=== PATIENT | male | born 1950 | race African-American/Black ===

== ENCOUNTER 2020-11-06 14:10 | Inpatient (IN) ==
[2020-11-06] MEDS ORDERED: SODIUM CHLORIDE 0.9% 500 ML IV STA (16:39)
[2020-11-06 17:02] LABS: Basophils % 0.4 % (0.0-0.8); Hemoglobin 14.4 GM/DL (14.0-18.0); Immature Granulocytes % 0.2 %; Immature Granulocytes Absolute 0.01 #; Lymphocytes # 1.4 10*3/uL (1.4-4.0); Lymphocytes % 32.4 % (21.2-54.2); Mean Corpuscular HGB Conc 35.1 GM/DL (32-36); Mean Platelet Volume 10.5 FL (9.6-12.0); Monocytes % 7.6 % (1.7-12.7); Neutrophils % 59.4 % (38.7-73.9); Platelet Count 177 T/CUMM (130-400); Red Blood Count 4.36 MC/CUMM (3.8-5.5); Red Cell Distribution Width 11.9 % (9.3-17.3); White Blood Count 4.5 T/CUMM (4-12)
[2020-11-06 17:31] LABS: Albumin 4.1 G/DL (3.4-5.0); Bilirubin,Total 0.4 MG/DL (0.20-1.00); Calcium 8.5 MG/DL (8.5-10.1); Osmolality,Calculated 269.5 MOS/KG (273-304); Potassium 3.9 MMOL/L (3.5-5.1); Total Protein 8.3 G/DL (6.4-8.2)
[2020-11-06] MEDS ORDERED: GLUCAGON 1 MG VIAL IM PRN ×2 (18:02→18:10)
[2020-11-06] MEDS ORDERED: DEXTROSE 50% 25 GM/50 ML VIAL IV PRN ×2 (18:02→18:10)
[2020-11-06] MEDS ORDERED: MELATONIN 3 MG TABLET PO PRN (18:05)
[2020-11-06] MEDS ORDERED: AZITHROMYCIN INJ 500 MG in SODIUM CHLORIDE 0.9% 250 ML IV ONE (18:05)
[2020-11-06] MEDS: ENOXAPARIN 60 MG/0.6 ML SYRINGE SUBCUT SCH (21:14)
[2020-11-06] MEDS: AMITRIPTYLINE 25 MG TABLET PO SCH (21:15)
[2020-11-06] MEDS: GABAPENTIN 600 MG TABLET PO SCH (21:15)
[2020-11-06] MEDS: METOPROLOL TARTRATE 50 MG TABLET PO SCH (21:15)
[2020-11-06] MEDS: ASCORBIC ACID 500 MG TABLET PO SCH (21:16)
[2020-11-06] MEDS: FAMOTIDINE 20 MG TABLET PO SCH (21:16)
[2020-11-06] MEDS: INSULIN LISPRO 100 UNIT/ML SUBCUT SCH (21:21)
[2020-11-07 04:06] LABS: Basophils # 0.1 10*3/uL (0.0-0.2); Basophils % 1.2 % (0.0-0.8); Hematocrit 37.4 VOL% (42.0-52.0); Hemoglobin 13.4 GM/DL (14.0-18.0); Immature Granulocytes % 0.2 %; Immature Granulocytes Absolute 0.01 #; Lymphocytes # 1.9 10*3/uL (1.4-4.0); Lymphocytes % 44.5 % (21.2-54.2); Mean Corpuscular HGB Conc 35.8 GM/DL (32-36); Mean Corpuscular Volume 93.7 FL (87-102); Mean Platelet Volume 10.1 FL (9.6-12.0); Monocytes % 6.1 % (1.7-12.7); Platelet Count 149 T/CUMM (130-400); Red Blood Count 3.99 MC/CUMM (3.8-5.5); Red Cell Distribution Width 11.9 % (9.3-17.3); White Blood Count 4.3 T/CUMM (4-12)
[2020-11-07 04:36] LABS: Calcium 7.9 MG/DL (8.5-10.1); Ferritin 1725.9 ng/ml (26-388); Osmolality,Calculated 270.4 MOS/KG (273-304); Potassium 3.8 MMOL/L (3.5-5.1)
[2020-11-07 04:49] LABS: Microcytosis Slight
[2020-11-07 04:53] LABS: Platelet Estimate Adequate
[2020-11-07] MEDS: CETIRIZINE 10 MG TABLET PO SCH (08:52)
[2020-11-07] MEDS: ASCORBIC ACID 500 MG TABLET PO SCH ×2 (08:52→20:46)
[2020-11-07] MEDS: DEXAMETHASONE 4 MG/1 ML VIAL IV SCH (08:52)
[2020-11-07] MEDS: CHOLECALCIFEROL 1,000 UNIT TABLET PO SCH (08:53)
[2020-11-07] MEDS: ENOXAPARIN 60 MG/0.6 ML SYRINGE SUBCUT SCH ×2 (08:53→20:46)
[2020-11-07] MEDS: GABAPENTIN 600 MG TABLET PO SCH ×3 (08:53→20:46)
[2020-11-07] MEDS: FAMOTIDINE 20 MG TABLET PO SCH ×2 (08:53→20:46)
[2020-11-07] MEDS: ATORVASTATIN 20 MG TABLET PO SCH (08:53)
[2020-11-07] MEDS: ZINC GLUCONATE 50 MG TABLET PO SCH (08:53)
[2020-11-07] MEDS: METOPROLOL TARTRATE 50 MG TABLET PO SCH ×2 (08:53→20:46)
[2020-11-07] MEDS: INSULIN LISPRO 100 UNIT/ML SUBCUT SCH ×4 (08:54→20:38)
[2020-11-07 14:53] LABS: Bilirubin,Urine Negative (Negative); Blood, Urine Negative (Negative); Glucose,Urine (UA) Negative (Negative); Ketones,Urine 5 mg/dL (Negative); Mucus,Urine Occasional /LPF (Occasional); Nitrite,Urine Negative (Negative); Protein,Urine 30 MG/DL; RBC,Urine 3 /HPF (0-4); Squamous Epithelial Cell,Urine Occasional /HPF (0-10); Urine Appearance Slightly Hazy (Clear); Urine Color Yellow (Yellow); Urine Specific Gravity 1.023 (1.001-1.035); Urine Urobilinogen < 2.0 EU/DL (0.2-1.0)
[2020-11-07] MEDS: AMITRIPTYLINE 25 MG TABLET PO SCH (20:46)
[2020-11-08] MEDS: ACETAMINOPHEN 325 MG TABLET PO PRN ×2 (05:01→10:56)
[2020-11-08 07:28] LABS: Calcium 8.3 MG/DL (8.5-10.1); Osmolality,Calculated 268.5 MOS/KG (273-304); Potassium 3.8 MMOL/L (3.5-5.1)
[2020-11-08] MEDS: METOPROLOL TARTRATE 50 MG TABLET PO SCH ×2 (08:30→21:12)
[2020-11-08 08:58] LABS: Basophils % 0.5 % (0.0-0.8); Hematocrit 35.6 VOL% (42.0-52.0); Hemoglobin 12.8 GM/DL (14.0-18.0); Immature Granulocytes % 0.5 %; Immature Granulocytes Absolute 0.02 #; Lymphocytes # 2.2 10*3/uL (1.4-4.0); Lymphocytes % 51.5 % (21.2-54.2); Mean Corpuscular Volume 93.2 FL (87-102); Mean Platelet Volume 10.3 FL (9.6-12.0); Monocytes % 5.3 % (1.7-12.7); Neutrophils % 42.2 % (38.7-73.9); Platelet Count 141 T/CUMM (130-400); Red Blood Count 3.82 MC/CUMM (3.8-5.5); Red Cell Distribution Width 11.9 % (9.3-17.3); White Blood Count 4.3 T/CUMM (4-12)
[2020-11-08 09:24] LABS: Anisocytosis Slight; Atypical Lymphocytes Few; Band Neutrophils 4 % (0-10); Lymphocytes 51 % (20-55); Platelet Estimate Adequate; Segmented Neutrophils 40 % (50-85); Smudge Cells Few; Total Cells Counted 100
[2020-11-08] MEDS: ZINC GLUCONATE 50 MG TABLET PO SCH (10:55)
[2020-11-08] MEDS: ASCORBIC ACID 500 MG TABLET PO SCH ×2 (10:55→21:15)
[2020-11-08] MEDS: DEXAMETHASONE 4 MG/1 ML VIAL IV SCH (10:55)
[2020-11-08] MEDS: CHOLECALCIFEROL 1,000 UNIT TABLET PO SCH (10:55)
[2020-11-08] MEDS: INSULIN LISPRO 100 UNIT/ML SUBCUT SCH ×4 (10:56→22:10)
[2020-11-08] MEDS: FAMOTIDINE 20 MG TABLET PO SCH ×2 (10:56→21:15)
[2020-11-08] MEDS: ATORVASTATIN 20 MG TABLET PO SCH (10:56)
[2020-11-08] MEDS: CETIRIZINE 10 MG TABLET PO SCH (10:56)
[2020-11-08] MEDS: ENOXAPARIN 60 MG/0.6 ML SYRINGE SUBCUT SCH ×2 (10:57→21:13)
[2020-11-08] MEDS: GABAPENTIN 600 MG TABLET PO SCH ×3 (11:32→21:14)
[2020-11-08] MEDS: AZITHROMYCIN INJ 250 MG in SODIUM CHLORIDE 0.9% 250 ML IV SCH (14:03)
[2020-11-08] MEDS: SODIUM CHLORIDE 0.9% 1,000 ML IV SCH (14:03)
[2020-11-08] MEDS: AMITRIPTYLINE 25 MG TABLET PO SCH (21:09)
[2020-11-09 05:05] LABS: Basophils % 0.3 % (0.0-0.8); Hematocrit 36.2 VOL% (42.0-52.0); Hemoglobin 12.6 GM/DL (14.0-18.0); Immature Granulocytes % 0.5 %; Immature Granulocytes Absolute 0.02 #; Lymphocytes # 1.5 10*3/uL (1.4-4.0); Lymphocytes % 38.9 % (21.2-54.2); Mean Corpuscular HGB Conc 34.8 GM/DL (32-36); Mean Corpuscular Volume 94.5 FL (87-102); Monocytes % 6.4 % (1.7-12.7); Neutrophils % 53.9 % (38.7-73.9); Platelet Count 144 T/CUMM (130-400); Red Blood Count 3.83 MC/CUMM (3.8-5.5); Red Cell Distribution Width 11.9 % (9.3-17.3); White Blood Count 3.9 T/CUMM (4-12)
[2020-11-09 05:22] LABS: Calcium 8.3 MG/DL (8.5-10.1); Osmolality,Calculated 274.1 MOS/KG (273-304); Potassium 3.8 MMOL/L (3.5-5.1)
[2020-11-09 05:41] LABS: Lymphocytes 49 % (20-55); Nucleated Red Blood Cells 1 (0-5); Platelet Estimate Normal; Segmented Neutrophils 40 % (50-85); Total Cells Counted 100
[2020-11-09] MEDS: GABAPENTIN 600 MG TABLET PO SCH ×3 (10:29→20:41)
[2020-11-09] MEDS: ASCORBIC ACID 500 MG TABLET PO SCH ×2 (10:30→20:43)
[2020-11-09] MEDS: ACETAMINOPHEN 325 MG TABLET PO PRN (10:30)
[2020-11-09] MEDS: CHOLECALCIFEROL 1,000 UNIT TABLET PO SCH (10:30)
[2020-11-09] MEDS: ZINC GLUCONATE 50 MG TABLET PO SCH (10:30)
[2020-11-09] MEDS: CETIRIZINE 10 MG TABLET PO SCH (10:30)
[2020-11-09] MEDS: ATORVASTATIN 20 MG TABLET PO SCH (10:30)
[2020-11-09] MEDS: METOPROLOL TARTRATE 50 MG TABLET PO SCH ×2 (10:30→20:41)
[2020-11-09] MEDS: INSULIN LISPRO 100 UNIT/ML SUBCUT SCH ×4 (10:31→20:40)
[2020-11-09] MEDS: FAMOTIDINE 20 MG TABLET PO SCH ×2 (10:31→20:41)
[2020-11-09] MEDS: ENOXAPARIN 60 MG/0.6 ML SYRINGE SUBCUT SCH ×2 (10:31→20:41)
[2020-11-09] MEDS: DEXAMETHASONE 4 MG/1 ML VIAL IV SCH (10:31)
[2020-11-09] MEDS: SODIUM CHLORIDE 0.9% 1,000 ML IV SCH (14:00)
[2020-11-09] MEDS: AZITHROMYCIN INJ 250 MG in SODIUM CHLORIDE 0.9% 250 ML IV SCH (14:41)
[2020-11-09] MEDS: AMITRIPTYLINE 25 MG TABLET PO SCH (20:40)
[2020-11-10 05:15] LABS: Basophils # 0.1 10*3/uL (0.0-0.2); Basophils % 1.4 % (0.0-0.8); Hematocrit 35.1 VOL% (42.0-52.0); Hemoglobin 12.5 GM/DL (14.0-18.0); Immature Granulocytes % 0.2 %; Immature Granulocytes Absolute 0.01 #; Lymphocytes # 2.1 10*3/uL (1.4-4.0); Lymphocytes % 37.4 % (21.2-54.2); Mean Corpuscular HGB Conc 35.6 GM/DL (32-36); Mean Corpuscular Volume 93.6 FL (87-102); Mean Platelet Volume 10.7 FL (9.6-12.0); Monocytes % 4.3 % (1.7-12.7); Neutrophils % 56.7 % (38.7-73.9); Platelet Count 147 T/CUMM (130-400); Red Blood Count 3.75 MC/CUMM (3.8-5.5); Red Cell Distribution Width 12.1 % (9.3-17.3); White Blood Count 5.6 T/CUMM (4-12)
[2020-11-10 05:43] LABS: Calcium 8.2 MG/DL (8.5-10.1); Potassium 4.2 MMOL/L (3.5-5.1)
[2020-11-10 05:55] LABS: Microcytosis 1+; Tear Drop Cells Slight
[2020-11-10 05:56] LABS: Platelet Estimate Adequate
[2020-11-10] MEDS: ACETAMINOPHEN 325 MG TABLET PO PRN (07:25)
[2020-11-10] MEDS: INSULIN LISPRO 100 UNIT/ML SUBCUT SCH ×4 (08:23→20:53)
[2020-11-10] MEDS: ASCORBIC ACID 500 MG TABLET PO SCH ×2 (09:22→20:55)
[2020-11-10] MEDS: CHOLECALCIFEROL 1,000 UNIT TABLET PO SCH (09:22)
[2020-11-10] MEDS: METOPROLOL TARTRATE 50 MG TABLET PO SCH ×2 (09:22→20:54)
[2020-11-10] MEDS: ATORVASTATIN 20 MG TABLET PO SCH (09:22)
[2020-11-10] MEDS: ZINC GLUCONATE 50 MG TABLET PO SCH (09:22)
[2020-11-10] MEDS: GABAPENTIN 600 MG TABLET PO SCH ×3 (09:22→20:54)
[2020-11-10] MEDS: ENOXAPARIN 60 MG/0.6 ML SYRINGE SUBCUT SCH ×2 (09:23→20:54)
[2020-11-10] MEDS: FAMOTIDINE 20 MG TABLET PO SCH ×2 (09:23→20:54)
[2020-11-10] MEDS: CETIRIZINE 10 MG TABLET PO SCH (09:23)
[2020-11-10] MEDS: DEXAMETHASONE 4 MG/1 ML VIAL IV SCH (09:24)
[2020-11-10] MEDS ORDERED: SODIUM CHLORIDE 0.9% 1,000 ML IV ONE (10:47)
[2020-11-10] MEDS: cefTRIAXone 1,000 MG in SODIUM CHLORIDE 0.9% 100 ML IV SCH (11:21)
[2020-11-10] MEDS: AZITHROMYCIN INJ 250 MG in SODIUM CHLORIDE 0.9% 250 ML IV SCH (12:05)
[2020-11-10] MEDS: AMITRIPTYLINE 25 MG TABLET PO SCH (20:53)
[2020-11-11 06:10] LABS: Basophils % 0.3 % (0.0-0.8); Hematocrit 33.8 VOL% (42.0-52.0); Hemoglobin 11.8 GM/DL (14.0-18.0); Immature Granulocytes % 0.3 %; Immature Granulocytes Absolute 0.02 #; Lymphocytes # 2.4 10*3/uL (1.4-4.0); Mean Corpuscular HGB Conc 34.9 GM/DL (32-36); Mean Corpuscular Volume 92.9 FL (87-102); Mean Platelet Volume 10.8 FL (9.6-12.0); Monocytes % 4.7 % (1.7-12.7); Neutrophils % 55.7 % (38.7-73.9); Platelet Count 167 T/CUMM (130-400); Red Blood Count 3.64 MC/CUMM (3.8-5.5); White Blood Count 6.2 T/CUMM (4-12)
[2020-11-11 06:37] LABS: Calcium 8.2 MG/DL (8.5-10.1); Potassium 3.4 MMOL/L (3.5-5.1)
[2020-11-11 07:07] LABS: Hypochromasia Slight; Microcytosis 1+
[2020-11-11 07:08] LABS: Platelet Estimate Adequate
[2020-11-11] MEDS: INSULIN LISPRO 100 UNIT/ML SUBCUT SCH ×4 (07:12→21:25)
[2020-11-11] MEDS ORDERED: POTASSIUM CHLORIDE 20 MEQ TABLET PO ONE (07:20)
[2020-11-11] MEDS: ASCORBIC ACID 500 MG TABLET PO SCH ×2 (09:21→21:25)
[2020-11-11] MEDS: GABAPENTIN 600 MG TABLET PO SCH ×3 (09:21→21:25)
[2020-11-11] MEDS: ATORVASTATIN 20 MG TABLET PO SCH (09:21)
[2020-11-11] MEDS: METOPROLOL TARTRATE 50 MG TABLET PO SCH ×2 (09:21→21:25)
[2020-11-11] MEDS: FAMOTIDINE 20 MG TABLET PO SCH ×2 (09:21→21:25)
[2020-11-11] MEDS: ZINC GLUCONATE 50 MG TABLET PO SCH (09:21)
[2020-11-11] MEDS: DEXAMETHASONE 4 MG TABLET PO SCH (09:21)
[2020-11-11] MEDS: CETIRIZINE 10 MG TABLET PO SCH (09:21)
[2020-11-11] MEDS: ENOXAPARIN 60 MG/0.6 ML SYRINGE SUBCUT SCH ×2 (09:22→21:27)
[2020-11-11] MEDS: CHOLECALCIFEROL 1,000 UNIT TABLET PO SCH (09:22)
[2020-11-11] MEDS: cefTRIAXone 1,000 MG in SODIUM CHLORIDE 0.9% 100 ML IV SCH (12:11)
[2020-11-11] MEDS: LEVOFLOXACIN INJ 750 MG/150 ML PREMIX IV SCH (13:13)
[2020-11-11] MEDS: AMITRIPTYLINE 25 MG TABLET PO SCH (21:25)
[2020-11-12 07:07] LABS: Basophils % 0.1 % (0.0-0.8); Hemoglobin 12.5 GM/DL (14.0-18.0); Immature Granulocytes % 0.7 %; Immature Granulocytes Absolute 0.05 #; Lymphocytes # 2.1 10*3/uL (1.4-4.0); Lymphocytes % 28.5 % (21.2-54.2); Mean Corpuscular HGB Conc 34.7 GM/DL (32-36); Mean Corpuscular Volume 93.8 FL (87-102); Mean Platelet Volume 10.8 FL (9.6-12.0); Monocytes % 5.4 % (1.7-12.7); Neutrophils % 65.3 % (38.7-73.9); Platelet Count 205 T/CUMM (130-400); Red Blood Count 3.84 MC/CUMM (3.8-5.5); Red Cell Distribution Width 12.1 % (9.3-17.3); White Blood Count 7.2 T/CUMM (4-12)
[2020-11-12 07:22] LABS: Calcium 8.5 MG/DL (8.5-10.1); Osmolality,Calculated 274.8 MOS/KG (273-304); Potassium 3.8 MMOL/L (3.5-5.1)
[2020-11-12 07:30] LABS: Band Neutrophils 7 % (0-10); Lymphocytes 33 % (20-55); Platelet Estimate Normal; Segmented Neutrophils 54 % (50-85); Total Cells Counted 100
[2020-11-12 07:31] LABS: Anisocytosis Slight; Burr Cells Few
[2020-11-12] MEDS: INSULIN LISPRO 100 UNIT/ML SUBCUT SCH ×2 (07:38→11:43)
[2020-11-12] MEDS: ASCORBIC ACID 500 MG TABLET PO SCH (09:09)
[2020-11-12] MEDS: CHOLECALCIFEROL 1,000 UNIT TABLET PO SCH (09:09)
[2020-11-12] MEDS: GABAPENTIN 600 MG TABLET PO SCH ×2 (09:09→11:42)
[2020-11-12] MEDS: FAMOTIDINE 20 MG TABLET PO SCH (09:10)
[2020-11-12] MEDS: METOPROLOL TARTRATE 50 MG TABLET PO SCH (09:10)
[2020-11-12] MEDS: ZINC GLUCONATE 50 MG TABLET PO SCH (09:10)
[2020-11-12] MEDS: ENOXAPARIN 60 MG/0.6 ML SYRINGE SUBCUT SCH (09:10)
[2020-11-12] MEDS: DEXAMETHASONE 4 MG TABLET PO SCH (09:10)
[2020-11-12] MEDS: ATORVASTATIN 20 MG TABLET PO SCH (09:10)
[2020-11-12] MEDS: CETIRIZINE 10 MG TABLET PO SCH (09:10)
[2020-11-12] MEDS: LEVOFLOXACIN INJ 750 MG/150 ML PREMIX IV SCH (11:43)
[2020-11-12 12:36] VITALS: BP 160/81
== END 2020-11-12 13:41 | disposition home or self-care (01) | DRG 177 ==
LOC: N.ED 14:10 → N.EDINP 18:02 → N.2E 18:29
PROVIDERS: ADMIT Internal Medicine; ATTEND Internal Medicine

== ENCOUNTER 2021-01-08 10:35 | Observation (INO) ==
[2021-01-08] MEDS ORDERED: SODIUM CHLORIDE 0.9% 2,000 ML IV STA (11:29)
[2021-01-08 12:54] LABS: Basophils % 0.5 % (0.0-0.8); Eosinophils # 0.2 10*3/uL (0.0-0.87); Eosinophils % 2.5 % (0.00-10.9); Hematocrit 38.6 VOL% (42.0-52.0); Hemoglobin 13.3 GM/DL (14.0-18.0); Immature Granulocytes % 0.4 %; Immature Granulocytes Absolute 0.03 #; Lymphocytes # 3.3 10*3/uL (1.4-4.0); Lymphocytes % 43.3 % (21.2-54.2); Mean Corpuscular HGB Conc 34.5 GM/DL (32-36); Mean Platelet Volume 10.6 FL (9.6-12.0); Monocytes % 9.3 % (1.7-12.7); Platelet Count 223 T/CUMM (130-400); Red Blood Count 4.02 MC/CUMM (3.8-5.5); Red Cell Distribution Width 12.3 % (9.3-17.3); White Blood Count 7.7 T/CUMM (4-12)
[2021-01-08 13:17] LABS: Anisocytosis Slight; Band Neutrophils 1 % (0-10); Eosinophils 5 % (0-10); Lymphocytes 47 % (20-55); Macrocytosis 1+; Metamyelocytes 1 %; Platelet Estimate Normal; Segmented Neutrophils 35 % (50-85); Total Cells Counted 100
[2021-01-08 13:18] LABS: Atypical Lymphocytes Few
[2021-01-08 13:26] LABS: Albumin 3.6 G/DL (3.4-5.0); Bilirubin,Total 0.4 MG/DL (0.20-1.00); Calcium 9.1 MG/DL (8.5-10.1); Osmolality,Calculated 277.4 MOS/KG (273-304); Potassium 5.7 MMOL/L (3.5-5.1); Total Protein 7.3 G/DL (6.4-8.2)
[2021-01-08] MEDS ORDERED: INSULIN LISPRO 100 UNIT/ML SUBCUT STA (14:09)
[2021-01-08] MEDS ORDERED: DEXTROSE 50% 25 GM/50 ML VIAL IV PRN (17:14)
[2021-01-08] MEDS ORDERED: GLUCAGON 1 MG VIAL IM PRN (17:14)
[2021-01-08] MEDS ORDERED: ONDANSETRON 4 MG/2 ML VIAL IV PRN (17:14)
[2021-01-08] MEDS ORDERED: ENOXAPARIN 40 MG/0.4 ML SYRINGE SUBCUT SCH (17:30)
[2021-01-08] MEDS: SODIUM CHLORIDE 0.9% 1,000 ML IV SCH (17:38)
[2021-01-08] MEDS: INSULIN LISPRO 100 UNIT/ML SUBCUT SCH (18:41)
[2021-01-08] MEDS ORDERED: cefTRIAXone 1,000 MG in SODIUM CHLORIDE 0.9% 100 ML IV SCH (19:30)
[2021-01-08] MEDS: APIXABAN 2.5 MG TABLET PO SCH (20:52)
[2021-01-08] MEDS ORDERED: ATORVASTATIN 20 MG TABLET PO SCH (21:00)
[2021-01-08] MEDS ORDERED: tiZANidine 4 MG TABLET PO SCH (21:00)
[2021-01-08] MEDS ORDERED: FAMOTIDINE 20 MG TABLET PO SCH (21:00)
[2021-01-08] MEDS ORDERED: INSULIN GLARGINE 100 UNIT/ML SUBCUT SCH (21:00)
[2021-01-08 21:28] LABS: HIV Antigen/Antibody Result Nonreactive (Nonreactive)
[2021-01-08] MEDS: GABAPENTIN 300 MG CAPSULE PO SCH (21:55)
[2021-01-08 22:25] LABS: Bilirubin,Urine Negative (Negative); Blood, Urine Negative (Negative); Glucose,Urine (UA) 50 mg/dL (Negative); Ketones,Urine Negative (Negative); Mucus,Urine Occasional /LPF (Occasional); Nitrite,Urine Negative (Negative); Protein,Urine Negative; RBC,Urine <1 /HPF (0-4); Squamous Epithelial Cell,Urine Occasional /HPF (0-10); Urine Appearance CLEAR (Clear); Urine Color Yellow (Yellow); Urine Specific Gravity 1.009 (1.001-1.035); Urine Urobilinogen < 2.0 EU/DL (0.2-1.0)
[2021-01-09] MEDS: INSULIN LISPRO 100 UNIT/ML SUBCUT SCH ×3 (00:42→14:28)
[2021-01-09 04:53] LABS: Basophils % 0.5 % (0.0-0.8); Eosinophils # 0.3 10*3/uL (0.0-0.87); Eosinophils % 3.2 % (0.00-10.9); Hematocrit 37.6 VOL% (42.0-52.0); Immature Granulocytes % 0.1 %; Immature Granulocytes Absolute 0.01 #; Lymphocytes # 3.7 10*3/uL (1.4-4.0); Lymphocytes % 47.4 % (21.2-54.2); Mean Corpuscular HGB Conc 34.6 GM/DL (32-36); Mean Corpuscular Volume 96.2 FL (87-102); Mean Platelet Volume 10.8 FL (9.6-12.0); Monocytes % 9.3 % (1.7-12.7); Neutrophils % 39.5 % (38.7-73.9); Platelet Count 224 T/CUMM (130-400); Red Blood Count 3.91 MC/CUMM (3.8-5.5); Red Cell Distribution Width 12.4 % (9.3-17.3); White Blood Count 7.9 T/CUMM (4-12)
[2021-01-09] MEDS: SODIUM CHLORIDE 0.9% 1,000 ML IV SCH ×2 (05:35→14:28)
[2021-01-09 05:52] LABS: Calcium 8.2 MG/DL (8.5-10.1); Potassium 3.9 MMOL/L (3.5-5.1)
[2021-01-09] MEDS: GABAPENTIN 300 MG CAPSULE PO SCH ×3 (05:55→14:27)
[2021-01-09] MEDS: APIXABAN 2.5 MG TABLET PO SCH (08:31)
[2021-01-09 14:16] VITALS: BP 118/84
[2021-01-11 08:16] LABS: Acinetobacter baumanii Not Detected (NotDetected); Bacteroides fragilis Not Detected (NotDetected); Candida auris Not Detected (NotDetected); Chlamydia trachomatis Not Detected (NotDetected); Class A beta Lactamase Not Detected (NotDetected); Cytomegalovirus/HHV5 Not Detected (NotDetected); Gardnerella vaginalis Not Detected (NotDetected); Haemophilus ducreyi Not Detected (NotDetected); Herpes simplex virus 1 & 2 Not Detected (NotDetected); Neiserria gonorrhoeae Not Detected (NotDetected); Pseudomonas aeruginosa Not Detected (NotDetected); Serratia marcescens Not Detected (NotDetected); Staphylococcus epidermidis Not Detected (NotDetected); Streptococcus agalactiae Not Detected (NotDetected); Streptococcus pyogenes Not Detected (NotDetected); Trichomonas vaginalis Not Detected (NotDetected); mecA-Methicillin Resistance Ge Not Detected (NotDetected)
== END 2021-01-09 14:10 | disposition home or self-care (01) ==
LOC: N.EDINP 10:35 → N.ED 10:35 → N.4E 19:53
PROVIDERS: ADMIT Internal Medicine; ATTEND Internal Medicine